=== PATIENT | male | born 1940 | race Caucasian/White ===

== ENCOUNTER 2017-12-15 23:53 | Inpatient (IN) | payer MEDICARE, OTHER ==
[~2017-12-15] VITALS: Ht 182.9 cm; Wt 77.2 kg
[2017-12-16] MEDS ORDERED: aspirin 81mg tab.chew PO ONE
[2017-12-16] MEDS ORDERED: digoxin 250mcg/ml 2ml ampule IV ONE (00:15)
[2017-12-16] MEDS ORDERED: metoprolol tartrate 50mg tablet PO ONE (00:15)
[2017-12-16 00:42] LABS: PARTIAL THROMBOPLASTIN TIME 29 SECONDS (22-32); PROTHROMBIN TIME 10.8 SECONDS (9.0-12.0)
[2017-12-16] MEDS ORDERED: UNABLE TO OBTAIN (00:42)
[2017-12-16 00:53] LABS: ALANINE AMINOTRANSFERASE 25 U/L (12-78); ALBUMIN 4.1 G/DL (3.4-5.0); ALKALINE PHOSPHATASE 96 IU/L (46-116); ANION GAP 14 (8-16); ASPARTATE AMINO TRANSFERASE 26 U/L (10-37); BILIRUBIN,TOTAL 1.2 MG/DL (0.1-1.0); BLOOD UREA NITROGEN 14 MG/DL (7-18); BUN/CREATININE RATIO 12.3 (5.4-32.0); CALCIUM 9.3 MG/DL (8.5-10.1); CHLORIDE 93 MMOL/L (99-107); CREATININE 1.14 MG/DL (0.60-1.10); GLUCOSE 338 MG/DL (70-104); MAGNESIUM 1.7 MG/DL (1.5-2.4); POTASSIUM 3.7 MMOL/L (3.5-5.1); SODIUM 132 MMOL/L (135-145); TOTAL CARBON DIOXIDE 25.3 MMOL/L (24-32); TOTAL PROTEIN 8.1 G/DL (6.4-8.2); eGFR 63 ML/MIN
[2017-12-16 00:58] LABS: BASOPHILS % (AUTO) 0.5 % (0-1); EOSINOPHILS % (AUTO) 0.5 % (0-6); HEMATOCRIT 44.6 % (42.0-52.0); HEMOGLOBIN 14.7 g/dl (14.0-17.9); LYMPHOCYTES % (AUTO) 14.4 % (21-51); MEAN CORPUSCULAR HEMOGLOBIN 30.4 PG (27.0-31.0); MEAN CORPUSCULAR VOLUME 92.3 FL (78-98); MEAN PLATELET VOLUME 7.8 FL (7.4-10.4); MONOCYTES # (AUTO) 0.4 X10'3 (0-0.9); MONOCYTES % (AUTO) 5.5 % (2-12); NEUTROPHILS # (AUTO) 5.9 X10'3 (1.8-7.7); NEUTROPHILS % (AUTO) 79.1 % (42-75); PLATELET COUNT 176 X10'3 (140-440); RED BLOOD COUNT 4.83 X10'6 (4.70-6.10); RED CELL DISTRIBUTION WIDTH 11.9 % (11.5-14.5); WHITE BLOOD COUNT 7.3 X10'3 (4.5-11.0)
[2017-12-16] MEDS ORDERED: potassium Cl 40MEQ/NS 500ml 500 ML IV PRN ×2 (02:20)
[2017-12-16] MEDS ORDERED: acetaminophen 325mg tablet PO PRN (02:20)
[2017-12-16] MEDS ORDERED: ondansetron/PF 4mg/2ml inj IV PRN (02:20)
[2017-12-16] MEDS ORDERED: potassium Cl 20 mEq SR tablet PO PRN (02:20)
[2017-12-16] MEDS ORDERED: magnesium Cl slow-release 64mg tablet PO PRN (02:20)
[2017-12-16] MEDS ORDERED: magnesium 2GM in 50ml NS 50 ML IV PRN (02:20)
[2017-12-16] MEDS ORDERED: magnesium 4gm in 100ml NS 100 ML IV PRN (02:20)
[2017-12-16] MEDS ORDERED: MESSAGE TO PHARMACY PO ONE (02:35)
[2017-12-16] MEDS ORDERED: glucagon, human recombinant 1mg kit SUBCUT PRN (02:35)
[2017-12-16] MEDS ORDERED: dextrose 50%-water 50ml dispensing syringe IV PRN ×2 (02:35)
[2017-12-16] MEDS ORDERED: dextrose ORAL solution 15 GM/59 ML bottle PO PRN ×2 (02:35)
[2017-12-16 03:52] LABS: HEMOGLOBIN A1C 10.6 % (4.5-6.2)
[2017-12-16 04:03] LABS: ETHANOL < 0.010 GM/DL (0.0-0.010)
[2017-12-16 07:49] LABS: BASOPHILS % (AUTO) 0.2 % (0-1); EOSINOPHILS # (AUTO) 0.1 X10'3 (0-0.9); EOSINOPHILS % (AUTO) 2.2 % (0-6); HEMATOCRIT 44.7 % (42.0-52.0); HEMOGLOBIN 15.8 g/dl (14.0-17.9); LYMPHOCYTES # (AUTO) 1.2 X10'3 (1.1-4.8); LYMPHOCYTES % (AUTO) 18.4 % (21-51); MEAN CORPUSCULAR HEMOGLOBIN 32.6 PG (27.0-31.0); MEAN CORPUSCULAR HGB CONC 35.4 % (33.0-36.5); MEAN CORPUSCULAR VOLUME 92.3 FL (78-98); MEAN PLATELET VOLUME 6.9 FL (7.4-10.4); MONOCYTES # (AUTO) 0.5 X10'3 (0-0.9); MONOCYTES % (AUTO) 7.8 % (2-12); NEUTROPHILS # (AUTO) 4.6 X10'3 (1.8-7.7); NEUTROPHILS % (AUTO) 71.4 % (42-75); PLATELET COUNT 171 X10'3 (140-440); RED BLOOD COUNT 4.84 X10'6 (4.70-6.10); RED CELL DISTRIBUTION WIDTH 12.6 % (11.5-14.5); WHITE BLOOD COUNT 6.5 X10'3 (4.5-11.0)
[2017-12-16] MEDS ORDERED: enoxaparin 40mg/0.4ml syringe SUBCUT SCH (08:00)
[2017-12-16] MEDS: K and/or MAG REPLACEMENT MC SCH (08:00)
[2017-12-16 08:10] LABS: ALANINE AMINOTRANSFERASE 26 U/L (12-78); ALBUMIN 3.8 G/DL (3.4-5.0); ALBUMIN/GLOBULIN RATIO 0.9 (1.1-1.5); ALKALINE PHOSPHATASE 93 IU/L (46-116); ANION GAP 9 (8-16); ASPARTATE AMINO TRANSFERASE 25 U/L (10-37); BILIRUBIN,TOTAL 1.3 MG/DL (0.1-1.0); BLOOD UREA NITROGEN 15 MG/DL (7-18); BUN/CREATININE RATIO 14.3 (5.4-32.0); CALCIUM 9.4 MG/DL (8.5-10.1); CHLORIDE 96 MMOL/L (99-107); CREATININE 1.05 MG/DL (0.60-1.10); GLUCOSE 296 MG/DL (70-104); POTASSIUM 3.9 MMOL/L (3.5-5.1); SODIUM 134 MMOL/L (135-145); TOTAL CARBON DIOXIDE 28.6 MMOL/L (24-32); TOTAL PROTEIN 7.9 G/DL (6.4-8.2); eGFR 69 ML/MIN
[2017-12-16] MEDS: metoprolol tartrate 25mg tablet PO SCH ×2 (09:59→20:38)
[2017-12-16] MEDS: atorvastatin 20mg tablet PO SCH (09:59)
[2017-12-16] MEDS: lisinopril 5mg tablet PO SCH (09:59)
[2017-12-16] MEDS: aspirin 81mg tablet.DR PO SCH (09:59)
[2017-12-16 10:39] LABS: CLARITY,URINE CLEAR (Clear); COLOR,URINE YELLOW (Yellow); GLUCOSE, URINE >=1000 mg/dl (Neg); KETONES,URINE 15 mg/dl (Neg); LEUKOCYTE ESTERASE ,URINE NEGATIVE (Neg); NITRITES, URINE NEGATIVE (Neg); OCCULT BLOOD,URINE TRACE-INTACT (Neg); PROTEIN,URINE TRACE mg/dl (Neg)
[2017-12-16 10:40] LABS: UA COLLECTION TYPE URINAL
[2017-12-16 10:45] LABS: URINE AMPHETAMINE SCREEN NEGATIVE (Neg); URINE BARBITUATE SCREEN NEGATIVE (Neg); URINE BENZODIAZEPINES SCREEN NEGATIVE (Neg); URINE CANNABINOID SCREEN POSITIVE (Neg); URINE COCAINE SCREEN NEGATIVE (Neg); URINE METHADONE SCREEN NEGATIVE (Neg); URINE OPIATE SCREEN POSITIVE (Neg); URINE PHENCYCLIDINE SCREEN NEGATIVE (Neg)
[2017-12-16 10:46] LABS: BACTERIA,URINE NONE SEEN /HPF (Neg); RBC,URINE NONE SEEN /HPF (0-2); SQUAMOUS EPITHELIAL CELL,UR NONE SEEN /LPF (FEW); WBC,URINE NONE SEEN /HPF (0-4)
[2017-12-16] MEDS ORDERED: heparin 10,000 units/1 ML INJ IV ONE (18:15)
[2017-12-16] MEDS ORDERED: heparin 10,000 units/1 ML INJ IV PRN (18:15)
[2017-12-16 18:46] LABS: INR 1.1 INR; PARTIAL THROMBOPLASTIN TIME 32 SECONDS (22-32); PROTHROMBIN TIME 10.9 SECONDS (9.0-12.0)
[2017-12-16 19:35] VITALS: BP 113/63
[2017-12-16] MEDS: insulin Lispro (HumaLOG) vial - multi-dose SQ SCH (20:06)
[2017-12-16 20:35] VITALS: BP 123/51
[2017-12-16] MEDS ORDERED: nitroGLYCERIN 0.4mg SUBLingual tab SL PRN (22:50)
[2017-12-16 23:22] VITALS: BP 73/41
[2017-12-16] MEDS: insulin glargine (Lantus) pen - multi-dose SQ SCH (23:35)
[2017-12-16 23:45] VITALS: BP 72/42
[2017-12-17] VITALS (8 sets, daily range): BP systolic 94–136; BP diastolic 32–76
[2017-12-17] MEDS ORDERED: normal saline 1000ml 1,000 ML IV ONE ×2 (00:20→09:30)
[2017-12-17 02:03] LABS: BASOPHILS # (AUTO) 0.1 X10'3 (0-0.2); BASOPHILS % (AUTO) 0.8 % (0-1); EOSINOPHILS # (AUTO) 0.1 X10'3 (0-0.9); EOSINOPHILS % (AUTO) 1.2 % (0-6); HEMATOCRIT 44.6 % (42.0-52.0); HEMOGLOBIN 15.2 g/dl (14.0-17.9); LYMPHOCYTES # (AUTO) 1.5 X10'3 (1.1-4.8); LYMPHOCYTES % (AUTO) 19.1 % (21-51); MEAN CORPUSCULAR HEMOGLOBIN 31.3 PG (27.0-31.0); MEAN CORPUSCULAR HGB CONC 34.1 % (33.0-36.5); MEAN CORPUSCULAR VOLUME 91.8 FL (78-98); MEAN PLATELET VOLUME 7.6 FL (7.4-10.4); MONOCYTES # (AUTO) 0.6 X10'3 (0-0.9); MONOCYTES % (AUTO) 7.5 % (2-12); NEUTROPHILS # (AUTO) 5.6 X10'3 (1.8-7.7); NEUTROPHILS % (AUTO) 71.4 % (42-75); PLATELET COUNT 166 X10'3 (140-440); RED BLOOD COUNT 4.86 X10'6 (4.70-6.10); RED CELL DISTRIBUTION WIDTH 12.1 % (11.5-14.5); WHITE BLOOD COUNT 7.9 X10'3 (4.5-11.0)
[2017-12-17 02:16] LABS: ALBUMIN 3.4 G/DL (3.4-5.0); ANION GAP 11 (8-16); BLOOD UREA NITROGEN 22 MG/DL (7-18); BUN/CREATININE RATIO 18.6 (5.4-32.0); CHLORIDE 101 MMOL/L (99-107); CHOL/HDL RATIO 4.8 (0.00-4.99); CHOLESTEROL 228 MG/DL (0-200); CREATININE 1.18 MG/DL (0.60-1.10); GLUCOSE 122 MG/DL (70-104); HDL CHOLESTEROL 48 MG/DL (35-60); LDL CHOLESTEROL 161 MG/DL (50-100); MAGNESIUM 1.8 MG/DL (1.5-2.4); POTASSIUM 3.5 MMOL/L (3.5-5.1); SODIUM 137 MMOL/L (135-145); TOTAL CARBON DIOXIDE 25.3 MMOL/L (24-32); TRIGLYCERIDES 79 MG/DL (20-135); eGFR 60 ML/MIN
[2017-12-17] MEDS: metoprolol tartrate 25mg tablet PO SCH ×2 (08:00→22:00)
[2017-12-17] MEDS: lisinopril 5mg tablet PO SCH (08:00)
[2017-12-17] MEDS: K and/or MAG REPLACEMENT MC SCH (09:07)
[2017-12-17] MEDS: atorvastatin 20mg tablet PO SCH (09:21)
[2017-12-17] MEDS: aspirin 81mg tablet.DR PO SCH (09:22)
[2017-12-17] MEDS ORDERED: regadenoson 0.4mg/5ml syringe IV ONE (09:50)
[2017-12-17] MEDS ORDERED: aminophylline 250mg/10ml inj. IV PRN (09:50)
[2017-12-17] MEDS ORDERED: iohexol 350MG/ML 100ml bottle IV ONE (10:45)
[2017-12-17] MEDS: insulin Lispro (HumaLOG) vial - multi-dose SQ SCH ×2 (13:29→19:45)
[2017-12-17] MEDS ORDERED: ziprasidone IM 20mg inj **IM only IM PRN (18:00)
[2017-12-17] MEDS ORDERED: digoxin 250mcg/ml 2ml ampule IV ONE (18:00)
[2017-12-17] MEDS: insulin glargine (Lantus) pen - multi-dose SQ SCH (22:29)
[2017-12-18] VITALS (12 sets, daily range): BP systolic 96–145; BP diastolic 49–78
[2017-12-18 05:32] LABS: BASOPHILS % (AUTO) 0.3 % (0-1); EOSINOPHILS # (AUTO) 0.1 X10'3 (0-0.9); EOSINOPHILS % (AUTO) 1.7 % (0-6); HEMATOCRIT 41.2 % (42.0-52.0); HEMOGLOBIN 14.7 g/dl (14.0-17.9); LYMPHOCYTES # (AUTO) 1.6 X10'3 (1.1-4.8); LYMPHOCYTES % (AUTO) 27.9 % (21-51); MEAN CORPUSCULAR HEMOGLOBIN 32.6 PG (27.0-31.0); MEAN CORPUSCULAR HGB CONC 35.8 % (33.0-36.5); MEAN CORPUSCULAR VOLUME 91.1 FL (78-98); MEAN PLATELET VOLUME 7.1 FL (7.4-10.4); MONOCYTES # (AUTO) 0.4 X10'3 (0-0.9); MONOCYTES % (AUTO) 7.8 % (2-12); NEUTROPHILS # (AUTO) 3.6 X10'3 (1.8-7.7); NEUTROPHILS % (AUTO) 62.3 % (42-75); PLATELET COUNT 154 X10'3 (140-440); RED BLOOD COUNT 4.52 X10'6 (4.70-6.10); RED CELL DISTRIBUTION WIDTH 12.8 % (11.5-14.5); WHITE BLOOD COUNT 5.7 X10'3 (4.5-11.0)
[2017-12-18 05:49] LABS: ALBUMIN 3.1 G/DL (3.4-5.0); ANION GAP 8 (8-16); BLOOD UREA NITROGEN 17 MG/DL (7-18); BUN/CREATININE RATIO 17.2 (5.4-32.0); CALCIUM 8.8 MG/DL (8.5-10.1); CHLORIDE 100 MMOL/L (99-107); CREATININE 0.99 MG/DL (0.60-1.10); GLUCOSE 124 MG/DL (70-104); MAGNESIUM 1.7 MG/DL (1.5-2.4); POTASSIUM 3.3 MMOL/L (3.5-5.1); SODIUM 135 MMOL/L (135-145); TOTAL CARBON DIOXIDE 27.1 MMOL/L (24-32); eGFR 74 ML/MIN
[2017-12-18] MEDS ORDERED: regadenoson 0.4mg/5ml syringe IV ONE ×2 (06:59→08:59)
[2017-12-18] MEDS ORDERED: SERT25TA PO (07:18)
[2017-12-18] MEDS ORDERED: GABA-532 PO (07:18)
[2017-12-18] MEDS ORDERED: METO-411 PO (07:18)
[2017-12-18] MEDS ORDERED: GLYB5TAB7 PO (07:18)
[2017-12-18] MEDS ORDERED: DIGO125T PO (07:18)
[2017-12-18] MEDS ORDERED: DONE5TAB7 PO (07:18)
[2017-12-18] MEDS ORDERED: OLAN5TAB5 PO (07:18)
[2017-12-18] MEDS ORDERED: ALBU8.5H8 INH (07:18)
[2017-12-18] MEDS ORDERED: INSU100V9 SQ (07:18)
[2017-12-18] MEDS ORDERED: ACET1TAB25 PO (07:18)
[2017-12-18] MEDS: aspirin 81mg tablet.DR PO SCH (08:00)
[2017-12-18] MEDS: atorvastatin 20mg tablet PO SCH ×2 (08:00→12:20)
[2017-12-18] MEDS: metoprolol tartrate 25mg tablet PO SCH ×2 (08:00→12:21)
[2017-12-18] MEDS: K and/or MAG REPLACEMENT MC SCH (08:00)
[2017-12-18] MEDS: digoxin 250mcg (0.25mg) tablet PO SCH ×2 (08:00→12:21)
[2017-12-18] MEDS: lisinopril 5mg tablet PO SCH ×2 (08:00→12:20)
[2017-12-18] MEDS ORDERED: aminophylline inj. 0 ML IV ONE (08:59)
[2017-12-18] MEDS ORDERED: aminophylline inj. 10 ML IV ONE (10:11)
[2017-12-18] MEDS: insulin glargine (Lantus) pen - multi-dose SQ SCH ×2 (10:15→22:12)
[2017-12-18] MEDS ORDERED: ondansetron/PF 4mg/2ml inj ONE (10:23)
[2017-12-18] MEDS: potassium Cl 20 mEq SR tablet PO PRN ×2 (14:01→19:51)
[2017-12-18] MEDS: insulin Lispro (HumaLOG) vial - multi-dose SQ SCH (19:04)
[2017-12-18] MEDS ORDERED: insulin Lispro (HumaLOG) vial - multi-dose SQ ONE (21:15)
[2017-12-18] MEDS ORDERED: Melatonin 3mg tablet PO PRN (23:15)
[2017-12-19] VITALS: BP 108/56
[2017-12-19 05:43] LABS: BASOPHILS % (AUTO) 0.3 % (0-1); EOSINOPHILS # (AUTO) 0.1 X10'3 (0-0.9); EOSINOPHILS % (AUTO) 1.6 % (0-6); HEMOGLOBIN 14.9 g/dl (14.0-17.9); LYMPHOCYTES # (AUTO) 1.1 X10'3 (1.1-4.8); LYMPHOCYTES % (AUTO) 19.9 % (21-51); MEAN CORPUSCULAR HEMOGLOBIN 32.4 PG (27.0-31.0); MEAN CORPUSCULAR HGB CONC 35.5 % (33.0-36.5); MEAN CORPUSCULAR VOLUME 91.4 FL (78-98); MEAN PLATELET VOLUME 7.2 FL (7.4-10.4); MONOCYTES # (AUTO) 0.4 X10'3 (0-0.9); MONOCYTES % (AUTO) 7.8 % (2-12); NEUTROPHILS # (AUTO) 3.9 X10'3 (1.8-7.7); NEUTROPHILS % (AUTO) 70.4 % (42-75); PLATELET COUNT 154 X10'3 (140-440); RED BLOOD COUNT 4.59 X10'6 (4.70-6.10); RED CELL DISTRIBUTION WIDTH 12.6 % (11.5-14.5); WHITE BLOOD COUNT 5.6 X10'3 (4.5-11.0)
[2017-12-19 05:57] LABS: ALBUMIN 3.3 G/DL (3.4-5.0); ANION GAP 9 (8-16); BLOOD UREA NITROGEN 14 MG/DL (7-18); BUN/CREATININE RATIO 13.7 (5.4-32.0); CHLORIDE 102 MMOL/L (99-107); CREATININE 1.02 MG/DL (0.60-1.10); GLUCOSE 151 MG/DL (70-104); MAGNESIUM 1.6 MG/DL (1.5-2.4); POTASSIUM 3.9 MMOL/L (3.5-5.1); SODIUM 139 MMOL/L (135-145); eGFR 71 ML/MIN
[2017-12-19 07:32] VITALS: BP 140/71
[2017-12-19] MEDS: K and/or MAG REPLACEMENT MC SCH (08:00)
[2017-12-19] MEDS: atorvastatin 20mg tablet PO SCH (08:44)
[2017-12-19] MEDS: lisinopril 5mg tablet PO SCH (08:44)
[2017-12-19] MEDS: aspirin 81mg tablet.DR PO SCH (08:44)
[2017-12-19] MEDS: metoprolol tartrate 25mg tablet PO SCH ×2 (08:45→19:33)
[2017-12-19] MEDS: digoxin 250mcg (0.25mg) tablet PO SCH (08:45)
[2017-12-19] MEDS: rivaroxaban 20mg tablet PO SCH (08:45)
[2017-12-19] MEDS: insulin Lispro (HumaLOG) vial - multi-dose SQ SCH ×3 (10:50→19:28)
[2017-12-19 11:00] VITALS: BP 103/59
[2017-12-19] MEDS ORDERED: haloperidol 1mg tablet PO PRN (14:45)
[2017-12-19 20:00] VITALS: BP 123/75
[2017-12-19] MEDS: insulin glargine (Lantus) pen - multi-dose SQ SCH ×2 (21:00→22:51)
[2017-12-20] VITALS: BP 91/69
[2017-12-20 06:19] LABS: BASOPHILS % (AUTO) 0.4 % (0-1); EOSINOPHILS # (AUTO) 0.1 X10'3 (0-0.9); HEMATOCRIT 43.6 % (42.0-52.0); HEMOGLOBIN 15.3 g/dl (14.0-17.9); LYMPHOCYTES # (AUTO) 1.4 X10'3 (1.1-4.8); LYMPHOCYTES % (AUTO) 24.1 % (21-51); MEAN CORPUSCULAR HEMOGLOBIN 32.6 PG (27.0-31.0); MEAN CORPUSCULAR HGB CONC 35.1 % (33.0-36.5); MEAN CORPUSCULAR VOLUME 92.9 FL (78-98); MEAN PLATELET VOLUME 7.8 FL (7.4-10.4); MONOCYTES # (AUTO) 0.4 X10'3 (0-0.9); MONOCYTES % (AUTO) 7.1 % (2-12); NEUTROPHILS # (AUTO) 3.9 X10'3 (1.8-7.7); NEUTROPHILS % (AUTO) 66.4 % (42-75); PLATELET COUNT 148 X10'3 (140-440); RED CELL DISTRIBUTION WIDTH 12.5 % (11.5-14.5); WHITE BLOOD COUNT 5.9 X10'3 (4.5-11.0)
[2017-12-20 06:40] LABS: ALBUMIN 3.3 G/DL (3.4-5.0); ANION GAP 12 (8-16); BLOOD UREA NITROGEN 16 MG/DL (7-18); CALCIUM 8.8 MG/DL (8.5-10.1); CHLORIDE 101 MMOL/L (99-107); CREATININE 0.94 MG/DL (0.60-1.10); GLUCOSE 159 MG/DL (70-104); MAGNESIUM 1.6 MG/DL (1.5-2.4); POTASSIUM 3.9 MMOL/L (3.5-5.1); SODIUM 137 MMOL/L (135-145); TOTAL CARBON DIOXIDE 24.5 MMOL/L (24-32); eGFR 78 ML/MIN
[2017-12-20] MEDS: rivaroxaban 20mg tablet PO SCH (08:00)
[2017-12-20] MEDS: K and/or MAG REPLACEMENT MC SCH (08:00)
[2017-12-20] MEDS: aspirin 81mg tablet.DR PO SCH (09:05)
[2017-12-20] MEDS: metoprolol tartrate 25mg tablet PO SCH ×2 (09:05→19:38)
[2017-12-20] MEDS: atorvastatin 20mg tablet PO SCH (09:05)
[2017-12-20] MEDS: lisinopril 5mg tablet PO SCH (09:06)
[2017-12-20] MEDS: digoxin 250mcg (0.25mg) tablet PO SCH (09:08)
[2017-12-20] MEDS ORDERED: atorvastatin 20mg tablet PO ONE (09:15)
[2017-12-20] MEDS ORDERED: lisinopril 5mg tablet PO ONE (09:15)
[2017-12-20] MEDS ORDERED: digoxin 250mcg (0.25mg) tablet PO ONE (09:15)
[2017-12-20 11:00] VITALS: BP 146/65
[2017-12-20] MEDS: insulin Lispro (HumaLOG) vial - multi-dose SQ SCH ×2 (14:06→19:38)
[2017-12-20 19:20] VITALS: BP 125/69
[2017-12-20] MEDS: insulin glargine (Lantus) pen - multi-dose SQ SCH ×2 (21:00→22:57)
[2017-12-20 23:00] VITALS: BP 126/52
[2017-12-21 05:20] LABS: BASOPHILS % (AUTO) 0.5 % (0-1); EOSINOPHILS # (AUTO) 0.1 X10'3 (0-0.9); EOSINOPHILS % (AUTO) 1.3 % (0-6); HEMATOCRIT 44.8 % (42.0-52.0); HEMOGLOBIN 15.7 g/dl (14.0-17.9); LYMPHOCYTES # (AUTO) 1.3 X10'3 (1.1-4.8); LYMPHOCYTES % (AUTO) 20.6 % (21-51); MEAN CORPUSCULAR HEMOGLOBIN 32.3 PG (27.0-31.0); MEAN CORPUSCULAR HGB CONC 35.1 % (33.0-36.5); MEAN CORPUSCULAR VOLUME 92.1 FL (78-98); MEAN PLATELET VOLUME 7.4 FL (7.4-10.4); MONOCYTES # (AUTO) 0.5 X10'3 (0-0.9); MONOCYTES % (AUTO) 7.3 % (2-12); NEUTROPHILS # (AUTO) 4.4 X10'3 (1.8-7.7); NEUTROPHILS % (AUTO) 70.3 % (42-75); PLATELET COUNT 156 X10'3 (140-440); RED BLOOD COUNT 4.86 X10'6 (4.70-6.10); RED CELL DISTRIBUTION WIDTH 12.9 % (11.5-14.5); WHITE BLOOD COUNT 6.3 X10'3 (4.5-11.0)
[2017-12-21 05:47] LABS: ALBUMIN 3.5 G/DL (3.4-5.0); ANION GAP 9 (8-16); BLOOD UREA NITROGEN 14 MG/DL (7-18); BUN/CREATININE RATIO 15.1 (5.4-32.0); CALCIUM 9.3 MG/DL (8.5-10.1); CHLORIDE 100 MMOL/L (99-107); CREATININE 0.93 MG/DL (0.60-1.10); GLUCOSE 195 MG/DL (70-104); MAGNESIUM 1.8 MG/DL (1.5-2.4); SODIUM 138 MMOL/L (135-145); TOTAL CARBON DIOXIDE 28.7 MMOL/L (24-32); eGFR 79 ML/MIN
[2017-12-21] MEDS: aspirin 81mg tablet.DR PO SCH (07:30)
[2017-12-21] MEDS: metoprolol tartrate 25mg tablet PO SCH (07:31)
[2017-12-21] MEDS: rivaroxaban 20mg tablet PO SCH (07:31)
[2017-12-21] MEDS: atorvastatin 20mg tablet PO SCH (07:34)
[2017-12-21] MEDS: lisinopril 5mg tablet PO SCH (07:34)
[2017-12-21] MEDS: digoxin 250mcg (0.25mg) tablet PO SCH (07:34)
[2017-12-21 07:44] VITALS: BP 124/87
[2017-12-21] MEDS: K and/or MAG REPLACEMENT MC SCH (08:00)
[2017-12-21] MEDS: insulin Lispro (HumaLOG) vial - multi-dose SQ SCH (10:19)
[2017-12-21 11:00] VITALS: BP 133/62
== END 2017-12-21 12:35 | disposition left against medical advice (07) | DRG 637 ==
LOC: ER 23:54 → ED HOLD 12-16 02:16 → SUR 3N 12-16 19:37
PROVIDERS: ADMIT Family Medicine; ATTEND Internal Medicine
PROC: 4A02XM4 Measurement of Cardiac Total Activity, External Approach (ICD-10-PCS; principal; 2017-12-18)
PROC: 3E073KZ Introduction of Other Diagnostic Substance into Coronary Artery, Percutaneous Approach (ICD-10-PCS; 2017-12-18)
DX: E11.65 Type 2 diabetes mellitus with hyperglycemia (principal); G93.49 Other encephalopathy; F05 Delirium due to known physiological condition; I48.91 Unspecified atrial fibrillation; E11.22 Type 2 diabetes mellitus with diabetic chronic kidney disease; E87.1 Hypo-osmolality and hyponatremia; F03.90 Unspecified dementia, unspecified severity, without behavioral disturbance, psychotic disturbance, mood disturbance, and anxiety; H26.9 Unspecified cataract; I12.9 Hypertensive chronic kidney disease with stage 1 through stage 4 chronic kidney disease, or unspecified chronic kidney disease; N18.2 Chronic kidney disease, stage 2 (mild); Z60.2 Problems related to living alone; Z53.21 Procedure and treatment not carried out due to patient leaving prior to being seen by health care provider; Z95.1 Presence of aortocoronary bypass graft; Z79.4 Long term (current) use of insulin; Z79.84 Long term (current) use of oral hypoglycemic drugs; Z79.01 Long term (current) use of anticoagulants; Z79.82 Long term (current) use of aspirin; Z86.73 Personal history of transient ischemic attack (TIA), and cerebral infarction without residual deficits
CPT/HCPCS: 36415; 70450; 71045; 78452; 80048; 80053; 80061; 80305; 80320; 81001; 82948; 83036; 83605; 83735; 83880; 84439; 84443; 84484; 85025; 85610; 85730; 87040; 87070; 93005; 93017; 93306; 93880; 99291; A6258; A9500; J0280; J1160; J1644; J1650; J1815; J2405; J2785; J3486; J7030; Q9967